=== PATIENT | female | born 1980 | race African-American/Black ===

== ENCOUNTER 2017-12-11 13:30 | Emergency (ER) | payer SELFPAY ==
[2017-12-11 15:00] LABS: Bacteria,Urine 1+ /HPF (Negative); Bilirubin,Urine NEG (Negative); Blood,Urine NEG (Negative); Color,Urine Amber (Yellow); Mucus,Urine 3+ /HPF; Nitrite,Urine NEG (Negative)
[2017-12-11 16:04] LABS: Basophils % (Auto) 0.3 % (0.0-1.8); Eosinophils # (Auto) 0.1 K/mm3 (0.0-0.4); Eosinophils % (Auto) 0.7 % (0.0-4.3); Hematocrit 38.9 % (30.3-42.9); Lymphocytes # (Auto) 1.1 K/mm3 (1.2-5.4); Lymphocytes % (Auto) 9.3 % (13.4-35.0); Mean Corpuscular HGB Conc 33 % (30-34); Mean Corpuscular Hemoglobin 32 pg (28-32); Mean Corpuscular Volume 96 fl (79-97); Monocytes # (Auto) 0.7 K/mm3 (0.0-0.8); Monocytes % (Auto) 5.7 % (0.0-7.3); Platelet Count 253 K/mm3 (140-440); Red Blood Count 4.07 M/mm3 (3.65-5.03)
[2017-12-11 16:18] LABS: BUN/Creatinine Ratio 18; Blood Urea Nitrogen 9 mg/dL (7-17); Calcium 8.2 mg/dL (8.4-10.2)
[2017-12-11 16:19] LABS: Alanine Aminotransferase 25 units/L (7-56); Albumin 3.7 g/dL (3.9-5); Hemolysis Index 13
[2017-12-11] MEDS ORDERED: MORPHINE IV ONE ×2 (16:57→20:36)
[2017-12-11] MEDS ORDERED: NACL 0.9% 1000 ML 1,000 ML IV ONE ×2 (16:57→22:22)
[2017-12-11] MEDS ORDERED: ZOFRAN IV ONE ×2 (16:57→20:36)
[2017-12-11] MEDS ORDERED: LEVSIN SL SL ONE (17:32)
[2017-12-11] MEDS ORDERED: LIDOCAINE VISCOUS 2% PO ONE (17:32)
[2017-12-11] MEDS ORDERED: ALUM-MAG HYDROX-SIMETH 200-200-20MG/5ML PO ONE (17:32)
[2017-12-11 18:00] LABS: HCG Qualitative,Urine Negative (Negative)
--- NOTE | 2017-12-11 20:10 | Emergency Department Report ---
ED Abdominal Pain HPI - General Chief Complaint: Abdominal Pain Stated Complaint: ABDOMINAL PAIN Time Seen by Provider: 12/11/17 17:20 Source: patient Mode of arrival: Ambulatory Limitations: No Limitations - History of Present Illness Initial Comments: Ms. Dom Sebastian is a 37-year-old female who speaks limited Pakistani , who is here with the chief complaint of abdominal pain. Her abdominal pain started this morning and an hour prior to arrival to the hospital. The pain is concentrated in the epigastric region and radiates towards her back. She denies any nausea or vomiting or fevers or chills. She had similar symptoms 3 years ago unknown diagnosis. MD Complaint: abdominal pain -: days(s) (this morning) Location: epigastric (mainly epigastric there is some right upper quadrant tenderness as well) Radiation: back Migration to: no migration Severity: severe Severity scale (0 -10): 10 Quality: aching Consistency: constant Improves With: nothing Worsens With: nothing Associated Symptoms: denies other symptoms - Related Data Previous Rx's Medication Instructions Recorded Last Taken Type Hyoscyamine Subl [Levsin Sl 0.125 0.125 mg SL Q4HR PRN #7 tablet 12/12/17 Unknown Rx TAB] Pantoprazole [Protonix TAB] 20 mg PO QDAY #10 tablet. 12/12/17 Unknown Rx oxyCODONE /ACETAMINOPHEN [Percocet 1 tab PO Q6HR PRN #10 tablet 12/12/17 Unknown Rx 5/325] Allergies Allergy/AdvReac Type Severity Reaction Status Date / Time No Known Allergies Allergy Verified 12/11/17 13:41 ED Review of Systems ROS: Stated complaint: ABDOMINAL PAIN Other details as noted in HPI Constitutional: denies: chills, fever Eyes: denies: eye pain, eye discharge, vision change ENT: denies: ear pain, throat pain Respiratory: denies: cough, shortness of breath, wheezing Cardiovascular: denies: chest pain, palpitations Endocrine: no symptoms reported Gastrointestinal: denies: nausea, vomiting, diarrhea Genitourinary: denies: urgency, dysuria, discharge Musculoskeletal: denies: back pain, joint swelling, arthralgia Skin: denies: rash, lesions Neurological: denies: headache, weakness, paresthesias Psychiatric: denies: anxiety, depression Hematological/Lymphatic: denies: easy bleeding, easy bruising ED Past Medical Hx - Past Medical History Previous Medical History?: Yes Additional medical history: abdominal pain - Surgical History Past Surgical History?: Yes Hx Cholecystectomy: Yes - Social History Smoking Status: Current Every Day Smoker Substance Use Type: None - Medications Home Medications: Home Medications Medication Instructions Recorded Confirmed Last Taken Type Hyoscyamine Subl [Levsin Sl 0.125 0.125 mg SL Q4HR PRN #7 tablet 12/12/17 Unknown Rx TAB] Pantoprazole [Protonix TAB] 20 mg PO QDAY #10 tablet. 12/12/17 Unknown Rx oxyCODONE /ACETAMINOPHEN [Percocet 1 tab PO Q6HR PRN #10 tablet 12/12/17 Unknown Rx 5/325] ED Physical Exam - General Limitations: No Limitations, Language Barrier (speaks English, and very little Pakistani. 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 Absent: respiratory distress, wheezes, rales, rhonchi - Cardiovascular Cardiovascular Exam: Present: regular rate, normal rhythm, normal heart sounds - GI/Abdominal GI/Abdominal exam: Present: soft, tenderness (epigastric tenderness, right upper quadrant tenderness), guarding (, more tender in the epigastric and right upper quadrant), normal bowel sounds. Absent: rebound, rigid - Rectal Rectal exam: Present: deferred - Extremities Exam Extremities exam: Present: normal inspection, full ROM - Back Exam Back exam: Present: normal inspection, full ROM - Neurological Exam Neurological exam: Present: alert - Psychiatric Psychiatric exam: Present: normal affect, agitated - Skin Skin exam: Present: warm, dry, intact, normal color. Absent: rash ED Course Vital Signs 12/11/17 12/11/17 12/11/17 13:34 20:47 21:00 Temperature 98.7 F Pulse Rate 66 64 Respiratory 18 20 16 Rate Blood Pressure 102/57 Blood Pressure 110/74 [Left] O2 Sat by Pulse 99 97 Oximetry - Reevaluation(s) Reevaluation #1: 12/11/17 22:23 radiology called regarding the abdominal series and believes that patient might have small bowel obstruction. CT scan of the abdomen and pelvis with oral and IV contrast has already been ordered patient has already dosed with oral contrast and is awaiting CT scan. ED Medical Decision Making - Lab Data Result diagrams: 12/11/17 15:34 12/11/17 15:34 - Radiology Data Radiology results: report reviewed (CT scan of the abdomen and pelvis with oral and IV contrast: No acute abnormalities found in the abdomen obstruction. Small amount of free fluid in the cul-de-sac), image reviewed (acute abdominal series: Left upper abdomen with multiple air-fluid levels. I ordered CT scan of the abdomen and pelvis with oral and IV contrast to evaluate for small bowel obstruction) Critical care attestation.: If time is entered above; I have spent that time in minutes in the direct care of this critically ill patient, excluding procedure time. ED Disposition Clinical Impression: Acute abdominal pain Gastritis Qualifiers: Gastritis type: unspecified gastritis Chronicity: acute Gastritis bleeding: without bleeding Qualified Code(s): K29.00 - Acute gastritis without bleeding Disposition: TO HOME OR SELFCARE Is pt being admited?: No Does the pt Need Aspirin: No Condition: Stable Instructions: Gastritis (ED), Abdominal Pain (ED) Additional Instructions: Please see her doctor in 2 days for follow-up. He may return to the emergency department if your symptoms return, if her symptoms get worse or if you have nausea vomiting or any new onset of different symptoms. Prescriptions: Hyoscyamine Subl [Levsin Sl 0.125 TAB] 0.125 mg SL Q4HR PRN #7 tablet PRN Reason: Spasms oxyCODONE /ACETAMINOPHEN [Percocet 5/325] 1 tab PO Q6HR PRN #10 tablet PRN Reason: Pain Pantoprazole [Protonix TAB] 20 mg PO QDAY #10 tablet. Referrals: PRIMARY CAREMD [Primary Care Provider] - 3-[address] [facility] [Outside] - 3-5 Days [facility] [Outside] - 3-5 Days Time of Disposition: : Print Language: INDONESIAN
--- NOTE | 2017-12-11 22:01 | XRay Report ---
FINAL REPORT EXAM: XR ABD SERIES W CXR 1V HISTORY: abd pain TECHNIQUE: Supine and upright views of the abdomen and chest x-ray were performed Comparison: None FINDINGS: Heart size is normal. Lungs are clear and well expanded without focal infiltrate or consolidation. There are air-filled distended small bowel loops in the left upper quadrant with differing air-fluid levels. There is moderate stool in the right colon and hepatic flexure. There is significant stool in the left colon. There is scattered stool and air in the sigmoid colon. Small bowel appears to stretch around or radiate around a central abdominal density. No suspicious calcifications. IMPRESSION: Findings suspicious for small bowel obstruction. Recommend CT abdomen and pelvis. There also appears to be significant fecal retention. No free air. Normal chest x-ray. Old calcific granulomatous disease. Critical 2 result. Findings called by CRISTINA Lockett on 12/11/2017 at 2143 hours.
--- NOTE | 2017-12-12 00:41 | Cat Scan Report ---
FINAL REPORT EXAM: CT ABDOMEN PELVIS W CON HISTORY: abd pain, TECHNIQUE: Routine axial imaging was obtained of the abdomen and pelvis following the intravenous injection of 100 cc of Omnipaque 350. The patient was also administered oral contrast. Delayed axial imaging was obtained for evaluation of the renal collecting structures. Sagittal coronal reconstructions were reviewed also. FINDINGS: Both lung bases reveal mild atelectatic changes. Pleural fluid is not seen. The gallbladder has been removed. The liver, pancreas, spleen, and adrenal glands appear normal. The kidneys enhance normally. The vascular structures enhance normally. The bowel loops are normal in caliber. There are multiple uncomplicated colonic diverticula. The appendix appears normal. In the pelvis there is a small amount of free fluid in the right adnexal area below the cecum. No definite inflammatory process is seen. The uterus and bladder appear normal. There is no evidence of adenopathy. The skeletal structures otherwise well maintained. IMPRESSION: Cholecystectomy. No acute process in the abdomen and pelvis. Normal appendix. Very small amount of free fluid in the right adnexal area below the cecum. No definite inflammatory process identified.
[2017-12-12 02:24] VITALS: BP 110/80
== END 2017-12-12 02:22 | disposition home or self-care (01) ==
LOC: ED 13:30
DX: K29.00 Acute gastritis without bleeding (principal); F17.200 Nicotine dependence, unspecified, uncomplicated; Z90.49 Acquired absence of other specified parts of digestive tract
CPT/HCPCS: 36415; 74022; 74177; 80053; 81001; 81025; 83690; 85025; 96361; 96374; 96375; 96376; 99283; J2270; J2405; J7030; Q9967